=== PATIENT | male | born 1965 | race Caucasian/White ===

== ENCOUNTER 2024-05-11 01:52 | Day surgery (SDC) | payer OTHER, SELFPAY ==
[2024-04-19 15:05] VITALS: BMI 22.1
[2024-05-11 09:43] VITALS: BP 104/72; PULSE 114; RESP 20; TEMP 35.7; O2SAT 100
[2024-05-11] MEDS: LACTATED RINGERS 1,000 ML 150 ML IV CONT (09:56)
[2024-05-11 10:08] LABS: Glucose Point of Care 118 mg/dl (65-105)
--- NOTE | 2024-05-11 10:09 | P.PNAN_ITS ---
Anes - Initial Pre Proc Eval Procedure: Operation Date: 05/11/24 11:00 Proposed Procedures p Colonoscopy - Grady Green MD Date/Time: 05/11/24 10:09 Surgeon: Grady Green MD Pre Op Diagnosis: Crohn's Patient Data Age: 58 Gender: M Height: 1.73 m Weight: 59.8 kg Last Vital Signs Temp 96.3 F L 05/11/24 09:43 Pulse 114 H 05/11/24 09:43 Resp 20 05/11/24 09:43 BP 104/72 05/11/24 09:43 Pulse Ox 100 05/11/24 09:43 O2 Del Method Room Air 05/11/24 09:43 Allergies Allergy/AdvReac Type Severity Reaction Status Date / Time No Known Allergies Allergy Verified 05/11/24 09:41 Home Medications Medication Instructions Recorded Confirmed Type Vitamin D3 1 tablet PO DAILY 04/19/24 05/11/24 History adalimumab-adaz 40 mg/0.4 mL 40 mg subcut WEEKLY 04/19/24 05/11/24 History subcutaneous pen injector (Hyrimoz(CF) Pen) atorvastatin 10 mg tablet 10 mg PO DAILY 04/19/24 05/11/24 History ferrous sulfate 325 mg PO DAILY 04/19/24 05/11/24 History folic acid 1 mg tablet 1 mg PO DAILY 04/19/24 05/11/24 History lisinopril 40 mg tablet 40 mg PO DAILY 04/19/24 05/11/24 History methotrexate sodium 2.5 mg tablet 10 mg PO WEEKLY 04/19/24 05/11/24 History Laboratory Tests 05/11/24 09:55 POC Capillary Glucose 118 H mg/dl (65-105) Patient hx anesthesia problems: none Family hx anesthesia problems: none Results Review: All pre-operative results and documents have been reviewed as part of the pre- operative evaluation. [facility] Social History Social History Smoking status: Never smoker Alcohol intake: current Drinks per week: 14 Alcohol use details: Liquor and beer Substance use: current Substance use type: does not use Living arrangements: alone Spiritual care concerns: No Anes - Eval Final PreProcedure Day of Procedure 05/11/24 10:09 Patient weight: normal Heart: regular rate and rhythm Lungs: clear to auscultation Airway: Mallampati scale class II Neurological: alert and oriented Last oral intake: >/= 8 hours ASA classification: II Emergent: no Anesthetic plan: proceed Anesthesia type and monitoring: general GIVS and standard monitoring Results Review: All pre-operative results and documents have been reviewed as part of the pre- operative evaluation. HTN, Crohn's disease. Informed Consent: The patient's anesthetic plan and its attendant risks and benefits were discussed with the patient/family/POA. Questions were solicited and answers provided to the satisfaction of the patient/family/POA.
--- NOTE | 2024-05-11 11:03 | PM.IMHP ---
H&P: HPI History of Present Illness Date/Time: 05/11/24 11:03 Chief Complaint: Crohn's disease Narrative: this patient has been diagnosed with Crohn's disease several years ago, currently on weekly adalimumab injections. He lives in [place] and his compliance consultant is in [place]. He has in town visiting family and decided to have a colonoscopy done. Review of Systems Review of Systems: All systems reviewed & are unremarkable except as noted in HPI and below PMFSH Social History Social History Smoking status: Never smoker Alcohol intake: current Drinks per week: 14 Alcohol use details: Liquor and beer Substance use: current Substance use type: does not use Living arrangements: alone Spiritual care concerns: No Meds Home Medications and Allergies Home Medications Medication Instructions Recorded Confirmed Type Vitamin D3 1 tablet PO DAILY 04/19/24 05/11/24 History adalimumab-adaz 40 mg/0.4 mL 40 mg subcut WEEKLY 04/19/24 05/11/24 History subcutaneous pen injector (Hyrimoz(CF) Pen) atorvastatin 10 mg tablet 10 mg PO DAILY 04/19/24 05/11/24 History ferrous sulfate 325 mg PO DAILY 04/19/24 05/11/24 History folic acid 1 mg tablet 1 mg PO DAILY 04/19/24 05/11/24 History lisinopril 40 mg tablet 40 mg PO DAILY 04/19/24 05/11/24 History methotrexate sodium 2.5 mg tablet 10 mg PO WEEKLY 04/19/24 05/11/24 History Allergies Allergy/AdvReac Type Severity Reaction Status Date / Time No Known Allergies Allergy Verified 05/11/24 09:41 Vital Signs Vital Signs - 24 hr 05/11/24 09:43 Temperature 96.3 F L Pulse Rate 114 H Respiratory Rate 20 Blood Pressure 104/72 Pulse Oximetry 100 Oxygen Delivery Room Air Exam Const: General: cooperative and healthy appearing Resp: Effort & Inspection: normal respiratory effort and able to speak in complete sentences Auscultation: clear to auscultation bilaterally Cardio: Rate: regular rate Rhythm: regular rhythm GI: Inspection: normal to inspection GI Palp: No No hepatosplenomegaly present Auscultation: normal bowel sounds Rectal Exam: deferred Skin: General skin exam: normal color Psych: Appearance: grossly normal Mental Status: mental status grossly normal Assessment and Plan Assessment and plan (1) Crohn's disease: Code(s): K50.90 - Crohn's disease, unspecified, without complications Status: Acute Assessment and Plan: The patient is deemed a good candidate for the procedure. Consent signed. Will proceed.
[2024-05-11 11:30] VITALS: BP 108/67; PULSE 108; RESP 19; O2SAT 98
[2024-05-11 11:40] VITALS: BP 111/77; PULSE 82; RESP 22; O2SAT 100
[2024-05-11 11:50] VITALS: BP 110/79; PULSE 69; RESP 18; O2SAT 100
== END 2024-05-11 11:58 | disposition home or self-care (01) ==
PROVIDERS: Visit Provider Internal Medicine Gastroenterology
PROC: 0DJD8ZZ Inspection of Lower Intestinal Tract, Via Natural or Artificial Opening Endoscopic (ICD-10-PCS; CPT 45378; principal; 2024-05-11 11:00)
DX: K50.80 Crohn's disease of both small and large intestine without complications (principal); Z79.620 Long term (current) use of immunosuppressive biologic
CPT/HCPCS: 45380; 82948; 88305; J2704; J7120